=== PATIENT | female | born 1965 ===

== ENCOUNTER 2017-01-16 10:15 | Emergency (ER) | payer MEDICAID ==
[2017-01-16 11:08] LABS: BASO # 0.1 K/uL (0.0-0.2); BASO % 0.6 % (0.0-2.0); EOS # 0.2 K/uL (0.0-0.7); EOS % 1.9 % (0.0-4.0); LYMPH # 2.7 K/uL (1.0-4.3); MEAN CELL VOLUME 86.9 fL (81.0-99.0); MEAN CORPUSCULAR HEMOGLOBIN 28.3 pg (27.0-31.0); MEAN CORPUSCULAR HGB CONC 32.6 g/dL (33.0-37.0); MEAN PLATELET VOLUME 9.6 fL (7.2-11.7); MONO # 0.5 K/uL (0.0-0.8); MONO % 4.9 % (0.0-10.0); RED CELL DISTRIBUTION WIDTH 13.3 % (11.5-14.5); WHITE BLOOD COUNT 9.8 K/uL (4.8-10.8)
[2017-01-16 11:29] LABS: CHLORIDE 101 mmol/L (98-107); SODIUM 140 mmol/L (132-148)
[2017-01-16 11:30] LABS: POTASSIUM 3.9 mmol/L (3.6-5.2)
[2017-01-16 11:31] LABS: GFR AFRICAN-AMERICAN > 60
[2017-01-16 11:32] LABS: ALB/GLOB RATIO 1.8 (1.0-2.1); ALKALINE PHOSPHATASE 115 U/L (38-126); ALT/SGPT 53 U/L (9-52); AST/SGOT 50 U/L (14-36); BILIRUBIN,TOTAL 0.7 mg/dL (0.2-1.3); BLOOD UREA NITROGEN 15 mg/dL (7-17); CALCIUM 9.3 mg/dl (8.6-10.4); CARBON DIOXIDE 26 mmol/L (22-30); GLUCOSE,RANDOM 95 mg/dL (65-105); TOTAL PROTEIN 8.4 g/dL (6.3-8.3)
[2017-01-16 11:38] LABS: RBC URINE 11 /hpf (0-3); URINE BACTERIA OCC (<OCC); URINE BILIRUBIN NEGATIVE (NEGATIVE); URINE BLOOD 1+ (NEGATIVE); URINE COLOR Yellow (YELLOW); URINE GLUCOSE (UA) NORMAL (Normal); URINE KETONE NEGATIVE (NEGATIVE); URINE LEUKOCYTE ESTERASE NEG Leu/uL (Negative); URINE PROTEIN 1+ mg/dL (NEGATIVE); URINE UROBILINOGEN NORMAL mg/dL (0.2-1.0); WBC URINE 3 /hpf (0-5)
[2017-01-16 12:39] VITALS: BP 129/89; PULSE 84; RESP 20; TEMP 98.9; O2SAT 97
--- NOTE | 2017-01-16 12:59 | RAD ---
HISTORY: chest pain COMPARISON: None available. TECHNIQUE: Chest, one view. FINDINGS: Examination limited by habitus. LUNGS: Bibasilar atelectasis. Please note that chest x-ray has limited sensitivity for the detection of pulmonary masses. PLEURA: No significant pleural effusion identified. No definite pneumothorax . CARDIOVASCULAR: The cardiomediastinal silhouette appears within normal limits of size. OSSEOUS STRUCTURES: No acute osseous abnormality identified. VISUALIZED UPPER ABDOMEN: Unremarkable. OTHER FINDINGS: None. IMPRESSION: Limited study. Bibasilar atelectasis.
--- NOTE | 2017-01-16 13:24 | C.PDOC ---
History Of Present Illness 51yo female, presents to the emergency department with complaints of left-sided chest pain, that started last night. Patient appears anxious, and is tearful due to her son being deployed in [place]. Denies any fevers, shortness of breath, cough or any other associated symptoms. No other complaints at this time. Chief Complaint (Nursing): Chest Pain History Per: Patient History/Exam Limitations: no limitations Onset/Duration Of Symptoms: Days Current Symptoms Are (Timing): Still Present Severity: Moderate Quality: Sharp Past Medical History Reviewed: Historical Data, Nursing Documentation, Vital Signs Vital Signs: Last Vital Signs Temp 98.9 F 01/16/17 12:37 Pulse 84 01/16/17 12:37 Resp 20 01/16/17 12:37 BP 129/89 01/16/17 12:37 Pulse Ox 97 01/16/17 13:25 Family History: States: No Known Family Hx - Social History Hx Alcohol Use: No Hx Substance Use: No Review Of Systems Except As Marked, All Systems Reviewed And Found Negative. Constitutional: Negative for: Fever, Chills Cardiovascular: Positive for: Chest Pain Respiratory: Negative for: Shortness of Breath Gastrointestinal: Negative for: Nausea, Vomiting Musculoskeletal: Negative for: Back Pain Skin: Negative for: Rash Neurological: Negative for: Weakness, Numbness, Headache, Dizziness Physical Exam - Physical Exam Appears: Non-toxic, No Acute Distress Skin: Normal Color, Warm, Dry, No Rash Head: Atraumatic, Normacephalic Eye(s): bilateral: Normal Inspection, PERRL, EOMI Nose: Normal Oral Mucosa: Moist Lips: Normal Appearing Neck: Normal ROM Cardiovascular: Rhythm Regular, No Murmur Respiratory: Normal Breath Sounds, No Accessory Muscle Use Gastrointestinal/Abdominal: Soft, No Tenderness Back: Normal Inspection Extremity: Normal ROM ED Course And Treatment - Laboratory Results Result Diagrams: 01/16/17 11:01 01/16/17 11:01 ECG: Interpreted By Me, Viewed By Me ECG Rhythm: Sinus Rhythm ECG Interpretation: No Acute Changes Rate From EC O2 Sat by Pulse Oximetry: 97 Disposition - Disposition Referrals: [facility], [Non-Staff] - Disposition: HOME/ ROUTINE Disposition Time: 11:45 Condition: GOOD Additional Instructions: Thank you for letting us take care of you today. Your provider was Dr. Luna. You were treated for noncardiac chest pain. The emergency medical care you received today was directed at your acute symptoms. If you were prescribed any medication, please fill it and take as directed. It may take several days for your symptoms to resolve. Return to the Emergency Department if your symptoms worsen, do not improve, or if you have any other problems. Please contact your doctor or call one of the physicians/clinics you have been referred to that are listed on the Patient Visit Information form that is included in your discharge packet. Bring any paperwork you were given at discharge with you along with any medications you are taking to your follow up visit. Our treatment cannot replace ongoing medical care by a primary care provider (PCP) outside of the emergency department. Thank you for allowing the [facility] team to be part of your care today. Follow up with your doctor in 2-3 days for re-evaluation. Prescriptions: Ranitidine HCl [Zantac] 150 mg PO BID #20 tablet Instructions: Noncardiac Chest Pain (ED), Anxiety (ED) - Clinical Impression Clinical Impression: Non-cardiac chest pain - Scribe Statement The provider has reviewed the documentation as recorded by the David Degroot All medical record entries made by the David were at my direction and personally dictated by me. I have reviewed the chart and agree that the record accurately reflects my personal performance of the history, physical exam, medical decision making, and the department course for this patient. I have also personally directed, reviewed, and agree with the discharge instructions and disposition.
--- NOTE | 2017-01-19 08:43 | CARD ---
APPROVED REPORT EKG Measurement Heart [id number] <Conclusion> Poor data quality, interpretation may be adversely affected Normal sinus rhythm Normal ECG
== END 2017-01-16 12:39 | disposition home or self-care (01) ==
LOC: C.ER 10:15
DX: R07.89 Other chest pain (principal)

== ENCOUNTER 2017-07-18 14:43 | Emergency (ER) | payer SELFPAY ==
[2017-07-18 14:52] VITALS: BP 153/62; PULSE 101; RESP 20; TEMP 98.9; O2SAT 96
[2017-07-18] MEDS ORDERED: guaiFENesin 100 mg/5 ml Syrup UD PO STA (15:33)
--- NOTE | 2017-07-18 15:36 | C.PDOC ---
History Of Present Illness Nimco Yousif is a 51 y/o female presenting to the ER complaining of cough, coryza, congestion, and dry non-productive cough, for 3 days. 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 She reports using herbal remedies at home without any improvement. She has not tried any Dayquil-like products. Patient denies productive cough, but has had occasional left nare epistaxis with blowing her nose. No fever, chills, nausea, or vomiting. Time Seen by Provider: 07/18/17 15:26 Chief Complaint (Nursing): Cough, Cold, Congestion History Per: Patient History/Exam Limitations: no limitations Onset/Duration Of Symptoms: Days (x 3) Current Symptoms Are (Timing): Still Present Sick Contacts (Context): Family Member(s) (children) Past Medical History Reviewed: Historical Data, Nursing Documentation, Vital Signs Vital Signs: Last Vital Signs Temp 98.9 F 07/18/17 14:50 Pulse 101 H 07/18/17 14:50 Resp 20 07/18/17 14:50 BP 153/62 H 07/18/17 14:50 Pulse Ox 96 07/18/17 16:20 - Medical History PMH: Malignancy (cervical CA) Other PMH: sickle cell trait Other Surgeries: Hysterectomy Family History: States: Unknown Family Hx - Social History Hx Alcohol Use: No Hx Substance Use: No Review Of Systems Except As Marked, All Systems Reviewed And Found Negative. Constitutional: Negative for: Fever, Chills ENT: Positive for: Nose Discharge (occasional left nare epistaxis), Nose Congestion (and coryza) Respiratory: Positive for: Cough. Negative for: Sputum Gastrointestinal: Negative for: Nausea, Vomiting Physical Exam - Physical Exam Appears: Non-toxic, No Acute Distress, Other (Morbidy obese) Skin: Normal Color, Warm, Dry Head: Atraumatic, Normacephalic Eye(s): bilateral: Normal Inspection, PERRL, EOMI Nose: Other (Crusted blood in left nares, no active bleeding) Oral Mucosa: Moist Throat: Normal, No Erythema, No Exudate Neck: Normal, Normal ROM, Supple Cardiovascular: Rhythm Regular, No Murmur Respiratory: Normal Breath Sounds, No Accessory Muscle Use, No Wheezing, Other ( dry non-productive cough noted) Extremity: Bilateral: Atraumatic, Normal Color And Temperature, Normal ROM Neurological/Psych: Oriented x3, Normal Speech ED Course And Treatment O2 Sat by Pulse Oximetry: 96 (RA) Pulse Ox Interpretation: Normal Medical Decision Making Medical Decision Making: Time: 15:33 Plan: Robitussin 100 mg PO Motrin 600 mg PO Impression: c/c/c typical viral syndrome, probably 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 scant rhonci and no h/o lung diseases no prior PO meds (tried the herbal route) so educated on Dayquil/Nyquil. 3 days into viral syndrome too late to start Tamiflu IF was influenza-like (low susp) Disposition Doctor Will See Patient In The: Office Counseled Patient/Family Regarding: Studies Performed, Diagnosis - Disposition Referrals: [facility] [Outside] [facility] [Outside] Disposition: HOME/ ROUTINE Disposition Time: 15:35 Condition: GOOD Additional Instructions: continue Dayquil/Nyquil as directed. Minimize contacts with other sick patients. Wear a mask if coughing. Follow-up in our [facility] as needed. Instructions: Upper Respiratory Infection (ED), Viral Syndrome (ED) Forms: [employer] (Palauan) - Clinical Impression Clinical Impression: Viral syndrome - Scribe Statement The provider has reviewed the documentation as recorded by the Scribe (Francy Pal) Provider Attestation: All medical record entries made by the Scribe were at my direction and personally dictated by me. I have reviewed the chart and agree that the record accurately reflects my personal performance of the history, physical exam, medical decision making, and the department course for this patient. I have also personally directed, reviewed, and agree with the discharge instructions and disposition.
[2017-07-18] MEDS ORDERED: guaiFENesin 100 mg/5 ml Syrup UD ONE (15:48)
== END 2017-07-18 15:50 | disposition home or self-care (01) ==
LOC: C.ER 14:43
DX: B34.9 Viral infection, unspecified (principal)

== ENCOUNTER 2017-08-11 16:50 | Emergency (ER) | payer SELFPAY ==
[2017-08-11 17:02] VITALS: BP 185/85; PULSE 91; RESP 18; TEMP 98.5; O2SAT 96
--- NOTE | 2017-08-11 18:01 | C.PDOC ---
History Of Present Illness 51 yr old female presents to the ER stating for the past 3-4 weeks she has been experiencing persistent cough. 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 Patient states she had a fever last week but the fever resolved. Denies chest pain, SOB, nausea, vomiting, abdominal pain or headache. Time Seen by Provider: 08/11/17 17:23 Chief Complaint (Nursing): Cough, Cold, Congestion History Per: Patient History/Exam Limitations: no limitations Onset/Duration Of Symptoms: Days (3-4 weeks) Current Symptoms Are (Timing): Still Present Past Medical History Reviewed: Historical Data, Nursing Documentation, Vital Signs Vital Signs: Last Vital Signs Temp 98.5 F 08/11/17 16:57 Pulse 91 H 08/11/17 16:57 Resp 18 08/11/17 16:57 BP 185/85 H 08/11/17 16:57 Pulse Ox 96 08/11/17 18:17 - Medical History PMH: Malignancy (cervical CA) Family History: States: No Known Family Hx - Social History Hx Alcohol Use: No Hx Substance Use: No - Immunization History Hx Tetanus Toxoid Vaccination: No Hx Influenza Vaccination: No Hx Pneumococcal Vaccination: No Review Of Systems Except As Marked, All Systems Reviewed And Found Negative. Cardiovascular: Negative for: Chest Pain Respiratory: Positive for: Cough. Negative for: Shortness of Breath Gastrointestinal: Negative for: Nausea, Vomiting, Abdominal Pain Neurological: Negative for: Headache Physical Exam - Physical Exam Appears: Non-toxic, No Acute Distress Skin: Warm, Dry, No Rash Head: Atraumatic, Normacephalic Eye(s): bilateral: Normal Inspection Oral Mucosa: Moist Throat: Normal, No Erythema, No Exudate, No Drooling, No Mass, Other ( persistent cough) Chest: Symmetrical, No Tenderness Cardiovascular: Rhythm Regular, No Murmur Respiratory: Normal Breath Sounds, No Rales, No Rhonchi, No Stridor, No Wheezing Gastrointestinal/Abdominal: Normal Exam, Soft, No Tenderness Extremity: Normal ROM, No Swelling Neurological/Psych: Oriented x3, Normal Speech, Normal Motor, Normal Sensation Gait: Steady ED Course And Treatment O2 Sat by Pulse Oximetry: 96 (RA) Pulse Ox Interpretation: Normal Medical Decision Making Medical Decision Making: PLAN: * CXR On re-exam, the patient reports improvement of symptoms. Lungs are CTA, heart is RRR, abdomen is soft, non-tender and the patient is tolerating PO well. Ambulatory in the ED with steady gait. Follow up with the medical doctor/clinic within 1-2 days. Return if worsened. Disposition - Disposition Referrals: [facility] [Outside] Disposition: HOME/ ROUTINE Disposition Time: 18:30 Condition: GOOD Additional Instructions: Follow up with the medical doctor/clinic within 1-2 days. Return if worsened. Prescriptions: Azithromycin [Zithromax] 250 mg PO DAILY #4 tab Loratadine [Claritin] 10 mg PO DAILY #10 tab predniSONE [Prednisone] 20 mg PO BID #10 tab Instructions: Upper Respiratory Infection (ED) Forms: [facility] (Cape Verdean), Work Excuse - Clinical Impression Clinical Impression: Bronchitis - PA / ED PHYSICIANS / Resident Statement MD/DO has reviewed & agrees with the documentation as recorded. - Scribe Statement The provider has reviewed the documentation as recorded by the Scribe Candy Grubbs All medical record entries made by the Scribe were at my direction and personally dictated by me. I have reviewed the chart and agree that the record accurately reflects my personal performance of the history, physical exam, medical decision making, and the department course for this patient. I have also personally directed, reviewed, and agree with the discharge instructions and disposition.
--- NOTE | 2017-08-11 19:09 | RAD ---
HISTORY: cough, x 3 weeks COMPARISON: Chest x-ray performed 01/16/17. TECHNIQUE: Chest PA and lateral FINDINGS: Examination limited by habitus and hypoinflation. LUNGS: No focal consolidation. Please note that chest x-ray has limited sensitivity for the detection of pulmonary masses. PLEURA: No significant pleural effusion identified. No definite pneumothorax . CARDIOVASCULAR: The cardiomediastinal silhouette appears within normal limits of size. OSSEOUS STRUCTURES: No acute osseous abnormality identified. VISUALIZED UPPER ABDOMEN: Unremarkable. OTHER FINDINGS: None. IMPRESSION: No focal consolidation, significant pleural effusion, or definite pneumothorax identified.
== END 2017-08-11 18:38 | disposition home or self-care (01) ==
LOC: C.ER 16:50
DX: J40 Bronchitis, not specified as acute or chronic (principal); Z87.891 Personal history of nicotine dependence

== ENCOUNTER 2017-08-17 15:55 | Emergency (ER) | payer MEDICAID ==
[2017-08-17 16:02] VITALS: BP 181/90; PULSE 95; RESP 20; TEMP 98.1; O2SAT 96
--- NOTE | 2017-08-17 16:41 | C.PDOC ---
History Of Present Illness 51-year-old female, presents to the emergency department requesting note to go back to work. Patient notes last week she was dx with bronchitis, was evaluated on 08/11/17 at [facility] and was treated with Z-jude and steroids. Symptoms have now resolved. DEnies cough, congestion, fever, SOB, or chest pain. 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 Time Seen by Provider: 08/17/17 16:17 Chief Complaint (Nursing): Medical Clearance History Per: Patient History/Exam Limitations: no limitations Onset/Duration Of Symptoms: Days, Waxing/Waning Past Medical History Reviewed: Historical Data, Nursing Documentation, Vital Signs Vital Signs: Last Vital Signs Temp 98.1 F 08/17/17 16:02 Pulse 95 H 08/17/17 16:02 Resp 20 08/17/17 16:02 BP 181/90 H 08/17/17 16:02 Pulse Ox 96 08/17/17 19:27 - Medical History PMH: Malignancy (cervical CA) Family History: States: No Known Family Hx - Social History Hx Alcohol Use: No Hx Substance Use: No - Immunization History Hx Tetanus Toxoid Vaccination: No Hx Influenza Vaccination: No Hx Pneumococcal Vaccination: No Review Of Systems Except As Marked, All Systems Reviewed And Found Negative. Constitutional: Negative for: Fever, Chills Cardiovascular: Negative for: Chest Pain Respiratory: Negative for: Shortness of Breath Gastrointestinal: Negative for: Vomiting Physical Exam - Physical Exam Appears: Non-toxic, No Acute Distress Skin: Warm, Dry, No Rash Head: Atraumatic, Normacephalic Eye(s): bilateral: Normal Inspection, EOMI Nose: Normal Oral Mucosa: Moist Throat: Normal, No Erythema, No Exudate Neck: Normal, Normal ROM, Supple Chest: Symmetrical Cardiovascular: Rhythm Regular Respiratory: Normal Breath Sounds, No Accessory Muscle Use Extremity: Normal ROM Neurological/Psych: Oriented x3 ED Course And Treatment O2 Sat by Pulse Oximetry: 96 (on RA) Pulse Ox Interpretation: Normal Disposition - Disposition Disposition: HOME/ ROUTINE Disposition Time: 16:41 Condition: STABLE Additional Instructions: Follow up with your primary medical doctor or clinic in 2-5 days for further evaluation. Return to the emergency department at any time if symptoms persist or worsen. Instructions: Upper Respiratory Infection (ED) Forms: [facility] (Italian), Work Excuse - Clinical Impression Clinical Impression: Medical assessment - Scribe Statement The provider has reviewed the documentation as recorded by the Scribe (Linh Degroot) All medical record entries made by the Scribe were at my direction and personally dictated by me. I have reviewed the chart and agree that the record accurately reflects my personal performance of the history, physical exam, medical decision making, and the department course for this patient. I have also personally directed, reviewed, and agree with the discharge instructions and disposition.
== END 2017-08-17 17:44 | disposition home or self-care (01) ==
LOC: C.ER 15:55
DX: Z00.00 Encounter for general adult medical examination without abnormal findings (principal)

== ENCOUNTER 2017-09-26 08:10 | Emergency (ER) | payer MEDICAID ==
[2017-09-26 08:37] VITALS: RESP 20; TEMP 98.5; O2SAT 97
--- NOTE | 2017-09-26 09:22 | C.PDOC ---
History Of Present Illness 52 year old female presents to ED evaluation of right eye itchiness, redness and discharge which developed today. Pt also complaints of itchy rash below her breasts and groin region since yesterday. Denies fever, chills, cough, runny nose, or sore throat. Time Seen by Provider: 09/26/17 09:00 Chief Complaint (Nursing): Eye Problem History Per: Patient History/Exam Limitations: no limitations Onset/Duration Of Symptoms: Days Current Symptoms Are (Timing): Still Present Associated Symptoms: Itching, Discharge From Eye. denies: Decreased Vision, Swelling, FB Sensation Additional History Per: Patient Past Medical History Reviewed: Historical Data, Nursing Documentation, Vital Signs Vital Signs: Last Vital Signs Temp 98.5 F 09/26/17 09:34 Pulse 100 H 09/26/17 09:34 Resp 20 09/26/17 09:34 BP 118/78 09/26/17 09:34 Pulse Ox 97 09/26/17 10:45 - Medical History PMH: Malignancy (cervical CA) Family History: States: Unknown Family Hx - Social History Hx Alcohol Use: No Hx Substance Use: No - Immunization History Hx Tetanus Toxoid Vaccination: No Hx Influenza Vaccination: No Hx Pneumococcal Vaccination: No Review Of Systems Except As Marked, All Systems Reviewed And Found Negative. Constitutional: Negative for: Fever, Chills Eyes: Positive for: Redness (redness, itchiness to right eye). Negative for: Vision Change, Conjunctivae Inflammation Cardiovascular: Negative for: Chest Pain, Palpitations Respiratory: Negative for: Cough, Shortness of Breath Skin: Positive for: Rash (below breasts and groin region) Physical Exam - Physical Exam Appears: Non-toxic, No Acute Distress Skin: Warm, Dry, Rash (erythematous rash below the breast and groin region that is well demarcated with excoriations) Head: Normacephalic Eye(s): right: Other (injected sclera with clear discharge, no periorbital swelling), left: Normal Inspection Oral Mucosa: Moist Throat: Normal, No Erythema, No Exudate Cardiovascular: Rhythm Regular Respiratory: Normal Breath Sounds, No Rales, No Rhonchi, No Wheezing Extremity: Normal ROM Neurological/Psych: Oriented x3, Normal Speech ED Course And Treatment O2 Sat by Pulse Oximetry: 97 Pulse Ox Interpretation: Normal Progress Note: Pt is being discharged home with Rx, and is instructed to follow up with PMD in 1-2 days for further evaluation. Disposition Counseled Patient/Family Regarding: Diagnosis, Need For Followup, Rx Given - Disposition Referrals: [facility] [Outside] Disposition: HOME/ ROUTINE Disposition Time: 09:20 Condition: STABLE Additional Instructions: FOLLOW UP WITH YOUR DOCTOR IN 1-2 DAYS USE MEDICATIONS DIRECTED RETURN TO ER IF SYMPTOMS WORSEN Prescriptions: Ketoconazole 2% Cr [Nizoral] 15 gm EXT DAILY #1 tube Ofloxacin Ophth 0.3% [Ocuflox Ophth 0.3%] 1 drop GT Q4 #1 bottle Instructions: Conjunctivitis (Pinkeye) (DC) Forms: [employer] (Finnish) Print Language: KENYAN - Clinical Impression Clinical Impression: Tinea corporis, Conjunctival argyrosis of right eye - Scribe Statement The provider has reviewed the documentation as recorded by the Scribe Daniel Knowles All medical record entries made by the Scribe were at my direction and personally dictated by me. I have reviewed the chart and agree that the record accurately reflects my personal performance of the history, physical exam, medical decision making, and the department course for this patient. I have also personally directed, reviewed, and agree with the discharge instructions and disposition.
[2017-09-26 09:33] VITALS: BP 118/78; PULSE 100
== END 2017-09-26 09:33 | disposition home or self-care (01) ==
LOC: C.ER 08:10
DX: H11.131 Conjunctival pigmentations, right eye (principal); B35.4 Tinea corporis

== ENCOUNTER 2018-06-05 18:18 | Emergency (ER) | payer MEDICAID, OTHER ==
[2018-06-05 18:36] VITALS: BP 137/84; PULSE 91; RESP 16; TEMP 99.1; O2SAT 97
[2018-06-05] MEDS ORDERED: Albuterol-Ipratrop 3 mg / 0.5 (3 ml) UD ONE (18:52)
[2018-06-05] MEDS ORDERED: Amoxicillin-Clav 875-125 mg Tab PO STA (19:28)
--- NOTE | 2018-06-05 19:29 | C.PDOC ---
History Of Present Illness 52 year old female without significant PMH, comes in for evaluation of cold symptoms associated with nasal congestion, runny nose, frontal headache and dry cough that gradually developed over the past week. Patient also noted a red eye this morning. Otherwise, pt denies fever, chills, severe headache, dizziness, visual changes, eye discharge, blurry vision, contact use, light sensitivity, pain in Left eye, denies neck pain, chest pain, SOB , wheezing, abd. pain, N/V, back pain, UTI sx. Ambulate to Ed for evaluation, not in any apparent distress. Time Seen by Provider: 06/05/18 18:37 Chief Complaint (Nursing): Eye Problem History Per: Patient History/Exam Limitations: no limitations Onset/Duration Of Symptoms: Days, Gradual Current Symptoms Are (Timing): Still Present Injury To Eye?: No Associated Symptoms: denies: Decreased Vision, Swelling, Discharge From Eye Recent travel outside of the [place]: No Past Medical History Reviewed: Historical Data, Nursing Documentation, Vital Signs Vital Signs: Last Vital Signs Temp 99.1 F 06/05/18 18:34 Pulse 91 H 06/05/18 18:34 Resp 16 06/05/18 18:34 BP 137/84 06/05/18 18:34 Pulse Ox 97 06/05/18 18:34 - Medical History PMH: Malignancy (cervical CA) Family History: States: Unknown Family Hx - Social History Hx Alcohol Use: No Hx Substance Use: No - Immunization History Hx Tetanus Toxoid Vaccination: No Hx Influenza Vaccination: No Hx Pneumococcal Vaccination: No Review Of Systems Except As Marked, All Systems Reviewed And Found Negative. Constitutional: Negative for: Fever, Chills ENT: Positive for: Nose Discharge, Nose Congestion Cardiovascular: Negative for: Chest Pain Respiratory: Positive for: Cough (dry ). Negative for: Shortness of Breath, Wheezing Neurological: Positive for: Headache (frontal ). Negative for: Dizziness Physical Exam - Physical Exam Appears: Well, Non-toxic, No Acute Distress Skin: Normal Color, Warm, Dry, No Rash, No Ecchymosis Head: Normacephalic Eye(s): bilateral: PERRL, EOMI (no pain or limitation on extraocular movement), left: Other (slight subconjunctival injection, no eye discharge, no periorbital edema or erythema) Ear(s): Bilateral: Normal Nose: Discharge (B/L nasal congestion with scant clear rhinorrhea), No Defo rmity, No Tenderness, Other (mild B/L paranasal and frontal tenderness, no edema or erythema.) Oral Mucosa: Moist Tongue: Normal Appearing Lips: Normal Appearing Throat: No Erythema, No Exudate, No Drooling Neck: Normal ROM, Trachea Midline, Supple Cardiovascular: Rhythm Regular, No Friction Rub, No Murmur, No JVD Respiratory: No Decreased Breath Sounds, No Accessory Muscle Use, No Rales, No Rhonchi, No Stridor, No Wheezing Gastrointestinal/Abdominal: Soft, No Tenderness, No Distention, No Guarding, No Rebound Back: No CVA Tenderness Extremity: Normal ROM, No Tenderness, No Pedal Edema, Capillary Refill (<2 seconds), No Swelling Extremity: Bilateral: Atraumatic Neurological/Psych: Oriented x3, Normal Motor, Normal Sensation Gait: Steady ED Course And Treatment O2 Sat by Pulse Oximetry: 97 (RA) Pulse Ox Interpretation: Normal Progress Note: Amoxicillin and Prednisone administered. On re-eval, pt is afebrile, hemodynamicay stable. non-toxic. Tolerate Po well in ED. PulseOx 97% RA. Neck: SUpple, (-) meningeal sign. ENT: mild sinusitis, Left eye: exam c/w conjuctival injection, no discharge, no periorbital edema or erythema. NO pain or limitation on extraocular movement. Lungs: CTA B/L, BS equal B/L. Abd: benign, (-) guarding, (-) rebound. Neuorlogicaly intact. Pt has clinical findings c/w sinusitis, left eye conjuctivitis. Pt advised. ref. to f/u with PMD, Opht in 2-3 days for re-eavl. return if any new changes. Disposition Counseled Patient/Family Regarding: Diagnosis, Need For Followup, Rx Given - Disposition Referrals: [facility] [Outside] Sunil Chowdhury MD [Non-Staff] - Disposition: HOME/ ROUTINE Disposition Time: 19:29 Condition: STABLE Additional Instructions: Encourage fluids Take medication as prescribed Follow up with PMD, opht in 2-3 days for re-evaluation. return to ED if any worsening or new changes. Prescriptions: Amoxicillin/Clavulanate [Augmentin 875 MG-125 MG] 1 tab PO BID #14 tab Loratadine [Claritin] 10 mg PO DAILY #14 tab Neomycin/Polymyxin/Dexamethaso [Dexamethasone/Neomycin/Polymyxin 5 Ml] 1 drop OP TID #1 bottle Prednisone [Deltasone] 40 mg PO DAILY #6 tablet Instructions: Sinusitis, Adult (DC), Conjunctivitis (Pinkeye) Forms: [employer] ([place]) - Clinical Impression Clinical Impression: Conjunctivitis, Sinusitis - PA / CANDY CATCHER / Resident Statement MD/DO has reviewed & agrees with the documentation as recorded. - Scribe Statement The provider has reviewed the documentation as recorded by the Scribe (Ray Peoples) All medical record entries made by the Scribe were at my direction and personally dictated by me. I have reviewed the chart and agree that the record accurately reflects my personal performance of the history, physical exam, medical decision making, and the department course for this patient. I have also personally directed, reviewed, and agree with the discharge instructions and disposition.
[2018-06-05] MEDS ORDERED: Amoxicillin-Clav 875-125 mg Tab PO ONE (19:36)
== END 2018-06-05 19:58 | disposition home or self-care (01) ==
LOC: C.ER 18:18
DX: J32.9 Chronic sinusitis, unspecified (principal); H10.9 Unspecified conjunctivitis

== ENCOUNTER 2018-09-14 16:36 | Emergency (ER) | payer OTHER ==
[2018-09-14 17:03] VITALS: BP 147/85; PULSE 90; RESP 16; TEMP 98.8; O2SAT 99
--- NOTE | 2018-09-14 17:45 | C.PDOC ---
History Of Present Illness 53 y/o female presents to the ED complaining that when she awoke this morning her eyes were red and crusty, and she could not open them. States she cleaned the crusting off and was able to open her eyes. Patient now reports itchiness to the bilateral eyes. No known injury/trauma, eye pain, or vision loss. Additionally patient is complaining of knee pain. States she fell 2 weeks ago and went into a split. Since then she has had muscle tightness to the back of her right knee. Patient saw her PMD and was given muscle relaxant, which she has not taken. Patient has not tried any other OTC pain meds. She now complains of difficulty walking secondary to worsening pain. Otherwise she denies extremity weakness, numbness, paresthesias, or other injury. Time Seen by Provider: 09/14/18 17:14 Chief Complaint (Nursing): Eye Problem History Per: Patient History/Exam Limitations: no limitations Onset/Duration Of Symptoms: Hrs Current Symptoms Are (Timing): Still Present Injury To Eye?: No Associated Symptoms: Itching, Discharge From Eye. denies: Pain, Decreased Vision Recent travel outside of the [place]: No Past Medical History Reviewed: Historical Data, Nursing Documentation, Vital Signs Vital Signs: Last Vital Signs Temp 98.8 F 09/14/18 16:59 Pulse 90 09/14/18 16:59 Resp 16 09/14/18 16:59 BP 147/85 09/14/18 16:59 Pulse Ox 99 09/14/18 16:59 - Medical History PMH: Malignancy (cervical CA) Family History: States: Unknown Family Hx - Social History Hx Alcohol Use: No Hx Substance Use: No - Immunization History Hx Tetanus Toxoid Vaccination: No Hx Influenza Vaccination: No Hx Pneumococcal Vaccination: No Review Of Systems Constitutional: Negative for: Fever, Chills Eyes: Positive for: Redness (with discharge/crusting and itchiness). Negative for: Pain, Vision Change ENT: Negative for: Nose Congestion Respiratory: Negative for: Cough, Shortness of Breath Gastrointestinal: Negative for: Nausea, Vomiting, Diarrhea Musculoskeletal: Positive for: Leg Pain (right knee) Skin: Negative for: Lesions, Bruising Neurological: Negative for: Weakness, Numbness, Incoordination Physical Exam - Physical Exam Appears: Well, Non-toxic, No Acute Distress Skin: Warm, Dry, No Rash Head: Atraumatic, Normacephalic Eye(s): bilateral: PERRL, EOMI, right: Normal Inspection, left: Other (Minimal conjunctival injection to left eye) Neck: Normal ROM Chest: Symmetrical Respiratory: No Accessory Muscle Use, Other (Normal inspiratory effort) Extremity: Tenderness (to posterior right knee), No Calf Tenderness, Capillary Refill (< 2 sec), No Deformity, No Swelling Extremity: Right: Other (Painful to bear weight on the right lower extremity), Bilateral: Atraumatic Pulses: Left Dorsalis Pedis: Normal, Right Dorsalis Pedis: Normal Neurological/Psych: Oriented x3, Normal Motor, Normal Sensation Gait: Steady ED Course And Treatment O2 Sat by Pulse Oximetry: 99 (RA) Pulse Ox Interpretation: Normal Medical Decision Making Medical Decision Making: Impression: Right leg muscle strain, Conjunctivitis Plan: - 800mg PO motrin given for pain Advised patient to take muscle relaxant that was prescribed to her by her PMD. Practice good hand hygiene as to not spread conjunctivitis. Work note provided as patient works as a [employer]. Disposition Counseled Patient/Family Regarding: Diagnosis, Need For Followup - Disposition Disposition: HOME/ ROUTINE Disposition Time: 17:48 Condition: STABLE Additional Instructions: ZAIDA HOPE, thank you for letting us take care of you today. Your provider was Kailee Jaramillo MD and you were treated for RT LEG PAIN/EYE PROBLEM. The emergency medical care you received today was directed at your acute symptoms. If you were prescribed any medication, please fill it and take as directed. It may take several days for your symptoms to resolve. Return to the Emergency Department if your symptoms worsen, do not improve, or if you have any other problems. Please contact your doctor or call one of the physicians/clinics you have been referred to that are listed on the Patient Visit Information form that is included in your discharge packet. Bring any paperwork you were given at discharge with you along with any medications you are taking to your follow up visit. Our treatment cannot replace ongoing medical care by a primary care provider outside of the emergency department. Thank you for allowing the [facility] team to be part of your care today. If you had an X-Ray or CT scan: A Radiologist will review the ED reading if any change in treatment is needed we will contact you. If you had a blood, urine, or wound culture: It will take several days for the results, if any change in treatment is needed we will contact you. If you had an STI test: It will take 48 hours for the results. Please call after 1 week if you have not heard back. Instructions: Muscle Strain (DC), Conjunctivitis ([place]keye) (DC) Forms: [facility] (Korean), Work Excuse - POA Present On Arrival: None - Clinical Impression Clinical Impression: Conjunctivitis, Muscle strain - Scribe Statement The provider has reviewed the documentation as recorded by the David Pal Provider Attestation: All medical record entries made by the David were at my direction and personally dictated by me. I have reviewed the chart and agree that the record accurately reflects my personal performance of the history, physical exam, medical decision making, and the department course for this patient. I have also personally directed, reviewed, and agree with the discharge instructions and disposition.
== END 2018-09-14 17:56 | disposition home or self-care (01) ==
LOC: C.ER 16:36
DX: H10.9 Unspecified conjunctivitis (principal); S86.911A Strain of unspecified muscle(s) and tendon(s) at lower leg level, right leg, initial encounter; W18.30XA Fall on same level, unspecified, initial encounter